=== PATIENT | male | born 1955 | race Caucasian/White ===

== ENCOUNTER 2017-11-19 16:58 | Emergency (ER) | payer MEDICARE, MEDICAID ==
[~2017-11-19] VITALS: Ht 193 cm; Wt 113.4 kg
[2017-11-19 16:58] VITALS: BP 133/79
[2017-11-19] MEDS ORDERED: TDAP [DIPH/PERTUSSIS/TET] 0.5 ML VIAL IM ONE ×2 (18:00→18:08)
[2017-11-19] MEDS ORDERED: CEFTRIAXONE 1 G VIAL IM ONE (18:00)
[2017-11-19] MEDS ORDERED: CEFTRIAXONE 1 G VIAL ONE (18:08)
[2017-11-19] MEDS ORDERED: LIDOCAINE HCL/PF 2 % 5ML SDV 5 ML VIAL ONE (18:08)
== END 2017-11-19 18:28 | disposition home or self-care (01) ==
LOC: ER 17:00
DX: S80.861A Insect bite (nonvenomous), right lower leg, initial encounter (principal); L03.115 Cellulitis of right lower limb; F31.9 Bipolar disorder, unspecified; E11.9 Type 2 diabetes mellitus without complications; W57.XXXA Bitten or stung by nonvenomous insect and other nonvenomous arthropods, initial encounter; Y93.89 Activity, other specified; Y92.89 Other specified places as the place of occurrence of the external cause; Y99.8 Other external cause status
CPT/HCPCS: 90471; 90715; 96372; 99284; A4606; J0696; J3490; Z7610

== ENCOUNTER 2019-11-02 17:36 | Emergency (ER) | payer MEDICARE, OTHER ==
[~2019-11-02] VITALS: Ht 193 cm; Wt 113.4 kg
--- NOTE | 2019-11-02 17:42 | NUR ---
CAME IN FOR LLQ ABDOMINAL PAIN X 5 DAYS. DENIES N/V/D, TO ER BED 6, HOOKED TO MONITOR AND POX, CHANGED T0 HOSP GOWN, WARM BLANKET PROVIDED, PATIENT AOx4 , BREATHING EVEN AND UNLABORED, NAD NOTED, AWAITING MD TORRE.
--- NOTE | 2019-11-02 18:08 | NUR ---
DR REDDY AT BEDSIDE
[2019-11-02] MEDS ORDERED: KETOROLAC TROMETHAMINE 15 MG/ML VIAL ONE (18:20)
[2019-11-02] MEDS ORDERED: KETOROLAC TROMETHAMINE INJ 30 MG/ML VIAL IV ONE (18:30)
[2019-11-02 18:32] LABS: BASOPHILS # (AUTO) 0.1 /CMM (0.0-0.2); BASOPHILS % (AUTO) 1.6 % (0.0-2.0); EOSINOPHILS % (AUTO) 3.9 % (0.0-6.0); HEMATOCRIT 43 % (39-51); HEMOGLOBIN 14.3 g/dL (13.5-17.5); LYMPHOCYTES # (AUTO) 2.1 /CMM (0.8-4.8); LYMPHOCYTES % (AUTO) 33.5 % (20.0-44.0); MEAN CORPUSCULAR HGB CONC 33 g/dl (31.0-36.0); MEAN CORPUSCULAR VOLUME 96 fL (80-96); MONOCYTES # (AUTO) 0.7 /CMM (0.1-1.30); MONOCYTES % (AUTO) 11.6 % (2.0-12.0); NEUTROPHILS % (AUTO) 49.4 % (43.0-81.0); PLATELET COUNT (AUTO) 278 /CMM (150-450); RED BLOOD CELL COUNT(AUTO) 4.48 MIL/uL (4.5-6.0); WHITE BLOOD COUNT (AUTO) 6.1 K/uL (4.3-11.0)
[2019-11-02 18:38] LABS: APPEARANCE,URINE Clear (CLEAR); BILIRUBIN,URINE Negative (NEGATIVE); BLOOD, URINE Negative Ery/uL (NEGATIVE); COLOR,URINE Yellow (YELLOW); KETONES,URINE Trace (NEGATIVE); LEUKOCYTE ESTERASE ,URINE Negative (NEGATIVE); NITRITE, URINE Negative (NEGATIVE); PROTEIN,URINE Negative (NEGATIVE); UGLUCOSE >=1000 mg/dL (NEGATIVE)
[2019-11-02 18:57] LABS: BACTERIA,URINE Rare /HPF (None Seen); RBC,URINE NONE SEEN /HPF (0-2); SQUAMOUS EPITHELIAL CELL,UR Rare /HPF (None Seen); WBC,URINE 0-2 /HPF (0-3)
[2019-11-02 19:01] LABS: ALBUMIN 3.9 g/dL (3.4-5.0); BILIRUBIN,DIRECT 0.1 mg/dL (0.0-0.2); BILIRUBIN,TOTAL 0.5 mg/dL (0.2-1.0); CALCIUM, SERUM 9.5 mg/dL (8.5-10.1); CREATININE 1.2 mg/dL (0.6-1.3); TOTAL PROTEIN, SERUM 6.9 g/dL (6.4-8.2)
--- NOTE | 2019-11-02 20:36 | NUR ---
IV removed. Catheter intact and site benign. Pressure and 4x4 applied to site. No bleeding noted.Patient discharged to home in stable condition. Written and verbal after care instructions given. Patient verbalizes understanding of instruction.
[2019-11-02 20:37] VITALS: BP 152/76
== END 2019-11-02 20:37 | disposition home or self-care (01) ==
LOC: ER 17:39
DX: N40.0 Benign prostatic hyperplasia without lower urinary tract symptoms (principal); R10.32 Left lower quadrant pain; E11.9 Type 2 diabetes mellitus without complications; F31.9 Bipolar disorder, unspecified; Z98.890 Other specified postprocedural states
CPT/HCPCS: 36415; 74176; 80048; 80076; 81001; 83690; 85025; 96374; 99284; J1885; 81000-TC

== ENCOUNTER 2021-07-29 19:33 | Emergency (ER) | payer MEDICARE, OTHER ==
[~2021-07-29] VITALS: Ht 193 cm; Wt 120.2 kg
[2021-07-29 19:52] VITALS: BP 180/105
[2021-07-29] MEDS ORDERED: LIDOCAINE HCL/PF 1% 30 ML SDV ONE (20:07)
--- NOTE | 2021-07-29 20:13 | NUR ---
AT BED SIDE FOR PROCEDURE
[2021-07-29] MEDS ORDERED: CLIN300C12 PO (20:34)
--- NOTE | 2021-07-29 20:49 | NUR ---
Patient discharged to home in stable condition. Written and verbal after care instructions given. Patient verbalizes understanding of instruction.
== END 2021-07-29 21:54 | disposition home or self-care (01) ==
LOC: ER 19:38
DX: S60.132A Contusion of left middle finger with damage to nail, initial encounter (principal); F31.9 Bipolar disorder, unspecified; Z98.890 Other specified postprocedural states; Z60.2 Problems related to living alone; Z79.899 Other long term (current) drug therapy; W22.8XXA Striking against or struck by other objects, initial encounter; Y93.89 Activity, other specified; Y92.89 Other specified places as the place of occurrence of the external cause; Y99.8 Other external cause status
CPT/HCPCS: 11740; 73130; 99284; J3490

== ENCOUNTER 2021-09-27 08:25 | Emergency (ER) | payer MEDICARE, OTHER ==
[~2021-09-27] VITALS: Ht 182.9 cm; Wt 117.9 kg
[~2021-09-27 08:25] MED LIST: CLIN300C12 PO
--- NOTE | 2021-09-27 08:38 | NUR ---
DR ALONSO AT BEDSIDE FOR EVAL.
[2021-09-27] MEDS ORDERED: ASPIRIN 325 MG TABLET ONE (08:49)
--- NOTE | 2021-09-27 08:55 | NUR ---
SAP BASIS AT BEDSIDE FOR BLOOD DRAW.
[2021-09-27] MEDS ORDERED: ASPIRIN 325 MG TABLET PO ONE (09:00)
--- NOTE | 2021-09-27 09:08 | NUR ---
RADIOLOGY AT BEDSIDE FOR CHEST XRAY.
[2021-09-27 09:19] LABS: BASOPHILS % (AUTO) 0.4 % (0.0-2.0); HEMATOCRIT 36 % (39-51); HEMOGLOBIN 11.6 g/dL (13.5-17.5); LYMPHOCYTES # (AUTO) 1.2 K/uL (0.8-4.8); LYMPHOCYTES % (AUTO) 17.8 % (20.0-44.0); MEAN CORPUSCULAR HGB CONC 33 g/dl (31.0-36.0); MEAN CORPUSCULAR VOLUME 95 fL (80-96); MONOCYTES # (AUTO) 1.4 K/uL (0.1-1.30); MONOCYTES % (AUTO) 21.1 % (2.0-12.0); NEUTROPHILS % (AUTO) 58.7 % (43.0-81.0); PLATELET COUNT (AUTO) 568 K/uL (150-450); RED BLOOD CELL COUNT(AUTO) 3.79 MIL/uL (4.5-6.0); WHITE BLOOD COUNT (AUTO) 6.8 K/uL (4.3-11.0)
[2021-09-27 09:53] LABS: CALCIUM, SERUM 9.3 mg/dL (8.5-10.1); CARBON DIOXIDE 27 mmol/L (21-32); CHLORIDE 102 mmol/L (98-107); GLUCOSE 120 mg/dL (74-106); POTASSIUM 4.8 mmol/L (3.5-5.1); SODIUM SERUM 138 mmol/L (136-145); UREA NITROGEN, BLOOD 17 mg/dL (7-18)
[2021-09-27] MEDS ORDERED: IBUP-1955 PO (11:18)
[2021-09-27] MEDS ORDERED: AZIT1PAC9 PO (11:18)
[2021-09-27 11:28] VITALS: BP 148/100
[2021-09-27 16:56] LABS: EOSINOPHILS % (MANUAL) 3 % (0-4); LYMPHOCYTES % (MANUAL) 23 % (16-48); MONOCYTES % (MANUAL) 15 % (0-11.0); NEUTROPHILS % (MANUAL) 59 (42-76)
--- NOTE | 2021-10-04 11:51 | NUR ---
NOTIFIED PT COVID PCR (+) VIA TELEPHONE CALL
== END 2021-09-27 11:29 | disposition home or self-care (01) ==
LOC: ER 08:30
DX: U07.1 COVID-19 (principal); J12.82 Pneumonia due to coronavirus disease 2019; R07.89 Other chest pain; M54.32 Sciatica, left side; G25.0 Essential tremor; F31.9 Bipolar disorder, unspecified; E11.9 Type 2 diabetes mellitus without complications; D64.9 Anemia, unspecified; D75.839 Thrombocytosis, unspecified; R03.0 Elevated blood-pressure reading, without diagnosis of hypertension
CPT/HCPCS: 36415; 71111-TC; 80048-TC; 84484-TC; 85025-TC; C9803; U0003

== ENCOUNTER 2022-11-14 21:33 | Emergency (ER) | payer MEDICARE, OTHER ==
[~2022-11-14] VITALS: Ht 193 cm; Wt 127.0 kg
[~2022-11-14 21:33] MED LIST changes: +AZIT1PAC9 PO; +IBUP-1955 PO
--- NOTE | 2022-11-14 22:50 | NUR ---
TO ER BED 9, BIBS C/O R MIDDLE FINGER PAIN/SWELLING/ REDNESS X3 DAYS BLISTERING TO OUTER EDGE. NO INJURIES PRIOR TO SYMPTOMS. AAOX4, BREATHING EVEN AND NON LABORED
[2022-11-14] MEDS ORDERED: LIDOCAINE 0.5% HCL 50 ML VIAL ONE (23:00)
[2022-11-14] MEDS ORDERED: BUPIVACAINE 0.5 % PF 150 MG/30 ML VIAL ONE (23:00)
[2022-11-14] MEDS ORDERED: CEPH500T PO (23:16)
[2022-11-15] MEDS ORDERED: CEPH500T PO (00:35)
--- NOTE | 2022-11-15 00:39 | NUR ---
Patient discharged to home in stable condition. Written and verbal after care instructions given. Patient verbalizes understanding of instruction.
[2022-11-15 00:41] VITALS: BP 139/76
== END 2022-11-15 00:42 | disposition home or self-care (01) ==
LOC: ER 21:45
DX: L03.011 Cellulitis of right finger (principal); J02.9 Acute pharyngitis, unspecified; E11.9 Type 2 diabetes mellitus without complications; F31.9 Bipolar disorder, unspecified; Z98.890 Other specified postprocedural states; Z60.2 Problems related to living alone; Z79.899 Other long term (current) drug therapy
CPT/HCPCS: 99283; 10060; 87880; J3490 ×2; 86403-TC